=== PATIENT | female | born 1975 | race Two or more races ===

== ENCOUNTER → 2017-04-27 | Outpatient (CLI) | payer MEDICAID ==
[~2017-04-27] MED LIST: MOTRIN600 MG PO; NORCO 5-325 MG1 TAB PO
== END | disposition disaster alternative care site (69) ==
LOC: GRAD 14:16
DX: D18.01 Hemangioma of skin and subcutaneous tissue (principal); R22.0 Localized swelling, mass and lump, head
CPT/HCPCS: A9577